=== PATIENT | female | born 2000 | race African-American/Black ===

== ENCOUNTER 2018-10-29 14:41 | Emergency (ER) | payer OTHER ==
[~2018-10-29] VITALS: Ht 152.4 cm; Wt 52.2 kg
[2018-10-29 15:20] LABS: URINE BILIRUBIN NEGATIVE (Negative); URINE BLOOD NEGATIVE (Negative); URINE CLARITY CLEAR; URINE COLOR YELLOW; URINE GLUCOSE-RANDOM* NEGATIVE (Negative); URINE KETONES NEGATIVE (Negative); URINE LEUKOCYTES-REFLEX 1+ (Negative); URINE NITRITE-REFLEX NEGATIVE (Negative); URINE PROTEIN (DIPSTICK) NEGATIVE (Negative); URINE SPECIFIC GRAVITY >= 1.030 (1.005-1.035)
[2018-10-29 15:45] LABS: BACTERIA-REFLEX 1-9 Few /HPF (None Seen); CASTS None Seen /LPF (None Seen); CRYSTALS None Seen /LPF (None Seen); MUCUS 4-6 Moderate strn/LPF (None Seen); SQUAMOUS 0-3 Few /LPF (0-3); URINE RBC None Seen /HPF (0-2); URINE WBC-REFLEX 6-15 Few /HPF (0-5)
[2018-10-29] MEDS ORDERED: BACTRIM DS TAB1 EACH PO (16:13)
[2018-10-29 16:51] VITALS: BP 98/56
== END 2018-10-29 16:52 | disposition home or self-care (01) ==
LOC: ER 14:41
PROVIDERS: Physician Assistant
DX: L02.214 Cutaneous abscess of groin (principal); N39.0 Urinary tract infection, site not specified; L73.2 Hidradenitis suppurativa; J45.909 Unspecified asthma, uncomplicated